=== PATIENT | female | born 1935 | race Caucasian/White ===

== ENCOUNTER 2017-05-22 14:15 | Outpatient (CLI) | payer MEDICARE ==
--- NOTE | 2017-05-22 14:57 | RAD ---
CHEST PA AND LATERAL: History: 82-year-old female with dyspnea. Comparison: 05-02-16 FINDINGS: Heart size is within normal limits. Atherosclerosis of the aorta. Scattered stable mostly linear and chronic lung changes. IMPRESSION: Mild stable chronic changes. Atherosclerosis of the aorta with ectasia. No acute intrathoracic disea se. POS: [facility]
== END 2017-05-22 14:16 | disposition home or self-care (01) ==
LOC: RAD 14:15
PROVIDERS: ATTEND Internal Medicine Critical Care Medicine
DX: R06.00 Dyspnea, unspecified (principal); I77.819 Aortic ectasia, unspecified site; I70.0 Atherosclerosis of aorta
CPT/HCPCS: 71020

== ENCOUNTER 2018-05-22 12:48 | Outpatient (CLI) | payer MEDICARE ==
--- NOTE | 2018-05-22 14:28 | RAD ---
PA AND LATERAL CHEST: HISTORY: Dyspnea. COMPARISON: 10/15/2017 FINDINGS: The heart size is normal. The aorta is tortuous. The lungs are well expanded without focal areas of consolidation, pneumothoraces, or pleural effusions. Degenerative changes area again seen in the sp ine. IMPRESSION: No radiographic evidence of acute cardiopulmonary process. POS: [facility]
== END 2018-05-22 12:49 | disposition home or self-care (01) ==
LOC: RAD 12:48
PROVIDERS: ATTEND Internal Medicine Critical Care Medicine
DX: R06.00 Dyspnea, unspecified (principal)
CPT/HCPCS: 71046

== ENCOUNTER 2021-08-23 13:07 | Outpatient (CLI) | payer MEDICARE | END 2021-08-23 13:08 | disposition home or self-care (01) | LOC: BICMAMMO 13:07 | PROVIDERS: ATTEND Internal Medicine | DX: Z12.31 Encounter for screening mammogram for malignant neoplasm of breast (principal); Z80.3 Family history of malignant neoplasm of breast; Z91.89 Other specified personal risk factors, not elsewhere classified | CPT/HCPCS: 77063; 77067 ==

== ENCOUNTER 2022-11-16 10:02 | Outpatient (CLI) | payer MEDICARE | END 2022-11-16 10:03 | disposition home or self-care (01) | LOC: BICMAMMO 10:02 | PROVIDERS: ATTEND Internal Medicine | DX: Z12.31 Encounter for screening mammogram for malignant neoplasm of breast (principal) | CPT/HCPCS: 77063; 77067 ==